=== PATIENT | female | born 1965 | race Two or more races ===

== ENCOUNTER 2023-04-01 10:35 | Emergency (ER) | payer OTHER ==
[~2023-04-01] VITALS: Ht 162.6 cm; Wt 69.9 kg
[2023-04-01 10:50] VITALS: TEMP 98.1
[2023-04-01] MEDS ORDERED: dexaMETHasone SOD PHOSPHATE 10 MG/ML VIAL IM ONE (12:00)
[2023-04-01] MEDS ORDERED: DIPH25CA83 PO (12:07)
[2023-04-01] MEDS ORDERED: FAMO-131 PO (12:07)
[2023-04-01] MEDS ORDERED: PRED20TA PO (12:07)
[2023-04-01] MEDS ORDERED: dexaMETHasone SOD PHOSPHATE 1 ML ONE (12:10)
[2023-04-01 12:33] VITALS: BP 138/81; O2SAT 100
== END 2023-04-01 12:34 | disposition home or self-care (01) ==
LOC: ER 10:43
DX: R22.0 Localized swelling, mass and lump, head (principal); I10 Essential (primary) hypertension; E11.9 Type 2 diabetes mellitus without complications; Z88.8 Allergy status to other drugs, medicaments and biological substances
CPT/HCPCS: 99283; 96372; J1100